=== PATIENT | female | born 1995 | race Caucasian/White ===

== ENCOUNTER 2020-10-20 01:33 | Emergency (ER) | payer OTHER ==
[~2020-10-20] VITALS: Ht 157.5 cm; Wt 47.6 kg
[2020-10-20] MEDS ORDERED: ROBAXIN100 MG/1 M PO (01:57)
[2020-10-20] MEDS ORDERED: TRAZODONE HCL100 MG PO (01:57)
--- OUTSIDE RECORDS SUMMARY | 2020-10-20 16:58 | XMS ---
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 E.Omar VISIT COUNT (12 MO.) 1 [facility] 2 [facility] - [address] TOTAL 4 NOTE: Visits indicate total known visits. ED/UCC VISIT TRACKING (12 MO.) 10/20/2020 01:35 [facility] TYPE: Emergency COMPLAINT: - MULTIPLE COMPLAINTS 10/03/2020 03:42 [facility] TYPE: Emergency COMPLAINT: - Congestion, cough DIAGNOSES: - Encounter for observation for suspected exposure to other biological agents ruled out - Congestion, cough - Cough - Fall - Cough [facility] DIAGNOSES: 1. Procedure and treatment not carried out due to patient leaving prior to being seen by health care provider 11/18/2019 13:34 [facility] - [facility] TYPE: Emergency COMPLAINT: - back pain INPATIENT VISIT TRACKING (12 MO.) No inpatient visits to display in this time frame [email or web address]
== END 2020-10-20 16:57 | disposition home or self-care (01) ==
LOC: ED 01:33
DX: R45.851 Suicidal ideations (principal); F11.129 Opioid abuse with intoxication, unspecified; F15.129 Other stimulant abuse with intoxication, unspecified; Z20.822 Contact with and (suspected) exposure to COVID-19; F17.200 Nicotine dependence, unspecified, uncomplicated; Z88.8 Allergy status to other drugs, medicaments and biological substances; Z88.5 Allergy status to narcotic agent; Z79.52 Long term (current) use of systemic steroids; Z79.899 Other long term (current) drug therapy
CPT/HCPCS: 80053; 80176; 81001; 84443; 84703; 85025; 87088; 96372; 99285; C9803; J2060; J3486; U0003